=== PATIENT | female | born 1955 | race Caucasian/White ===

== ENCOUNTER → 2019-10-20 | Outpatient (CLI) | payer OTHER ==
--- NOTE | 2019-10-20 12:05 | CT ---
EXAMINATION TYPE: CT cervical spine wo con DATE OF EXAM: 10/20/2019 COMPARISON: Outside cervical spine x-ray October 10, 2019. HISTORY: Neck pain with Left arm weakness and pain. CT DLP: 346 mGycm. Automated Exposure Control for Dose Reduction was Utilized. TECHNIQUE: CT scan of the cervical spine is obtained without contrast, axial images are obtained, sa gittal and coronal reformatted images are also reviewed. FINDINGS: Cervical spine is visualized in its entirety from C1 through upper thoracic levels, demonst rates slight scoliotic curvature on the coronal images. There is grade 1 anterolisthesis C3 on C4 an d more prominent grade 2 anterolisthesis C4 on C5. There is subtle grade 1 retrolisthesis C6 on C7. P revertebral soft tissue appears within normal limits. The C1-C2 articulation is within normal limits on the coronal images. Vertebral body heights are maintained. Moderate to severe disc space narrowin g C4-C5 and C5-C6 levels. There is additional mild to moderate spurring at the C5-C6 level. There is mild to moderate spurring and disc space narrowing at C6-C7 level. There is old nonhealed rani shovel er's fracture of the C7 spinous process. Retrograde C5 effaces the anterior thecal sac. Axial images at C2-C3 level show tiny central disc protrusion mildly facing anterior thecal sac. Axial images at C3-C4 level short uncovertebral facet degenerative changes bilaterally causing mild b ilateral neural foraminal narrowing. Axial images at C4-C5 level show uncovertebral facet degenerative changes bilaterally causing mild-to -moderate bilateral neural foraminal narrowing. Axial images at C5-C6 level uncovertebral facet and marginal spurring bilaterally causing mild to mod erate left greater than right bilateral neural foraminal narrowing. Axial images at C6-C7 level show posterior marginal spurring causing mild to moderate left greater th an right bilateral neural foraminal narrowing. Axial images at C7-T1 level remain within normal limits. Lung apices show [id number] pleural/clinical scarring bilaterally with few scattered blebs. The re is [id number] calcified plaque at bilateral carotid bulb level noted. IMPRESSION: Multilevel spondylolisthesis and degenerative changes greatest C4-C5 through C6-C7 levels as detailed above.
== END | disposition home or self-care (01) ==
LOC: RADCTMAIN 11:25
PROVIDERS: ATTEND Orthopaedic Surgery
DX: M43.12 Spondylolisthesis, cervical region (principal); M47.892 Other spondylosis, cervical region
CPT/HCPCS: 72125

== ENCOUNTER → 2019-11-04 | Outpatient (CLI) | payer OTHER ==
--- NOTE | 2019-11-04 19:30 | MR ---
EXAMINATION TYPE: MR cervical spine wo/w con DATE OF EXAM: 11/04/2019 COMPARISON: 10/20/2019 CT cervical spine HISTORY: Neck pain into left arm and fingers CONTRAST: Performed utilizing 5 mL intravenous Gadavist gadolinium contrast. TECHNIQUE: Multiplanar multiecho imaging on a 3.0 Rebecca magnet is performed through the cervical spin e. FINDINGS: The craniovertebral junction is normal. There is a retrolisthesis of C5 in relation to C4 a nd C6. This has moderate anterior thecal sac compression. C7-T1: No focal disc herniation or significant disc bulge is evident. No spinal canal stenosis or n eural foraminal stenosis is present. C6-7: No focal disc herniation or significant disc bulge is evident. No spinal canal stenosis or brianda ral foraminal stenosis is present. C5-6: No focal disc herniation or significant disc bulge is evident. No spinal canal stenosis or brianda ral foraminal stenosis is present. C4-5: No focal disc herniation or significant disc bulge is evident. No spinal canal stenosis or brianda ral foraminal stenosis is present. C3-4: Endplate changes have moderate anterior thecal sac compression. No cord deformity is evident. No spinal canal stenosis is present. Disc uncovering is present without cord impression or significan t thecal sac narrowing C2-3: No focal disc herniation or significant disc bulge is evident. No spinal canal stenosis or brianda ral foraminal stenosis is present. IMPRESSIONS: 1. There is a retrolisthesis of C5 on C4. Some mild retrolisthesis of C5 on C6 may also be present. T he prevertebral space however has a more normal appearance. No spinal canal stenosis is present. 2. Endplate changes C3-C4 with mild anterior thecal sac compression.
== END | disposition home or self-care (01) ==
LOC: RADMRIMAIN 10:51
PROVIDERS: ATTEND Orthopaedic Surgery
DX: M43.12 Spondylolisthesis, cervical region (principal); G95.20 Unspecified cord compression
CPT/HCPCS: 72156; A9585